=== PATIENT | male | born 1980 | race Caucasian/White ===

== ENCOUNTER 2023-10-19 07:43 | Emergency (ER) | payer OTHER, SELFPAY ==
[2023-10-19 07:54] VITALS: BP 165/97; PULSE 87; RESP 16; TEMP 36.7; O2SAT 98; BMI 25.1
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
--- NOTE | 2023-10-19 08:16 | CT_ITS ---
WS: [id number] CT CERVICAL SPINE TECHNIQUE: Noncontrast CT of the cervical spine with coronal and sagittal reformatted images. CLINICAL INFORMATION: Cervicalgia right arm radiculopathy COMPARISON: None. DLP: 181.[address] scans at [facility] use at least one of these dose optimization techniques: automated e xposure control; mA and/or kV adjustment per patient size (includes targeted exams where dose is matc hed to clinical indication); or iterative reconstruction. FINDINGS: Straightening with slight reversal the normal cervical lordosis. Slight anterolisthesis C2 on C3 and C3 on C4. C2-C3: Normal. C3-C4: Mild facet arthropathy. C4-C5: Disc osteophyte complex with endplate ridging. Moderate facet arthropathy. Spinal canal and fo ramen are patent. C5-C6: RIGHT paracentral disc osteophyte protrusion impinges the RIGHT subarticular recess. Osteophyt ic ridging with impingement on the exiting RIGHT C5 nerve root. Moderate RIGHT foraminal narrowing. M ild central canal stenosis. Mild LEFT bony foraminal narrowing. C6-C7: Disc osteophyte complex with endplate ridging. Moderate bilateral bony foraminal narrowing wit h osteophytic ridging and uncovertebral joint hypertrophy worse in the LEFT. Spinal canal is patent. C7-T1: No significant disc bulging. Spinal canal and foramen are patent. Visualized posterior nasopharynx: Normal. Prevertebral soft tissues: Normal. IMPRESSION: 1. RIGHT paracentral disc osteophyte protrusion C5-6 impinges the RIGHT subarticular recess. Osteo phytic ridging with impingement on the exiting RIGHT C5 nerve root. Moderate RIGHT foraminal narrowin g. Mild central canal stenosis. Recommend MRI in further evaluation. 2. Moderate LEFT greater than RIGHT bony foraminal narrowing C6-7.
[2023-10-19 08:17] VITALS: BP 137/86; PULSE 76; O2SAT 96
[2023-10-19] MEDS: ketorolac 30 mg/mL INJ IVP (08:20)
[2023-10-19] MEDS: dexamethasone 10 mg/mL INJ IM (08:45)
[2023-10-19] MEDS: orphenadrine 30 mg/mL Inj 2 mL 60 MG IM (08:46)
[2023-10-19 09:34] VITALS: BP 125/85; PULSE 82; O2SAT 97
--- NOTE | 2023-10-19 09:41 | DCPLANNER ---
A message was sent to ortho on 10/19/23 at 0942. [employer] to contact patient
--- NOTE | 2023-10-19 11:18 | DCPLANNER ---
I called patient on 10/19/23 at 1118 to confirm he was aware of the appointment with MRI at 0930 on 10/20/23 . Patient confirmed everything was set up
== END 2023-10-19 09:36 | disposition home or self-care (01) ==
PROVIDERS: Emergency Provider Family Medicine
DX: M50.10 Cervical disc disorder with radiculopathy, unspecified cervical region (principal); F17.220 Nicotine dependence, chewing tobacco, uncomplicated
CPT/HCPCS: 72125; 96372; 96374; 99285; J1100; J1885; J2360

== ENCOUNTER 2023-10-20 09:18 | Outpatient (CLI) | payer OTHER, SELFPAY ==
--- NOTE | 2023-10-20 09:23 | MR_ITS ---
WS: [id number] MRI CERVICAL SPINE with and without contrast HISTORY: CERVICAL DISC DISORDER W/RADICULOPATHY COMPARISON: CT cervical spine 10/19/2023 Technique: Multiplanar, multisequence noncontrast imaging of the cervical spine. Study performed with and without contrast. MultiHance 11 mL IV. Straightening and slight reversal of the normal cervical lordosis. Reversal centered at C4-5. Signal within the cervical cord is normal. Visualized posterior fossa is unremarkable. Craniocervical junction, C1 and C2 relationship, odontoid process and soft tissues are normal. C2-C3: Normal. C3-C4: Normal. C4-C5: Mild asymmetric disc bulging with a LEFT foraminal disc osteophyte. Mild LEFT foraminal stenos is. C5-C6: Mild annular disc bulging with send moderate RIGHT paracentral and proximal foraminal disc ost eophyte complex. This is a moderate disc osteophyte complex extending into the RIGHT foramen with mod erate stenosis. Smaller osteophyte without stenosis LEFT foramen. C6-C7: Small bilateral foraminal osteophytes. Osteophytes are contributing to mild bilateral foramina l stenosis. C7-T1: Normal. No enhancing masses. No discitis or osteomyelitis. No epidural abscess. IMPRESSION: 1. C5-6: Moderate disc osteophyte complex extending extending into the RIGHT paracentral and proxima l foramen. Displacement of the RIGHT lateral thecal sac and the nerve root. 2. C6-7: Small bilateral foraminal osteophytes with only mild stenosis. 3. C4-5: Small LEFT foraminal disc osteophyte with mild foraminal stenosis. 4. No discitis or osteomyelitis. No mass.
[2023-10-20] MEDS: gadobenate dimeglumine 20 mL vial IV (10:08)
== END 2023-10-20 09:19 | disposition home or self-care (01) ==
LOC: RAD 09:19
PROVIDERS: Visit Provider Family Medicine
DX: M54.12 Radiculopathy, cervical region (principal); M25.78 Osteophyte, vertebrae; M48.02 Spinal stenosis, cervical region
CPT/HCPCS: 72156; A9577